=== PATIENT | female | born 2005 ===

== ENCOUNTER 2025-02-06 08:24 | Outpatient (CLI) | payer OTHER | END 2025-02-06 08:25 | disposition home or self-care (01) | LOC: PRENATAL 08:24 | PROVIDERS: ATTEND Obstetrics & Gynecology Maternal & Fetal Medicine | DX: O44.00 Complete placenta previa NOS or without hemorrhage, unspecified trimester (principal); Z3A.22 22 weeks gestation of pregnancy ==

== ENCOUNTER → 2025-04-03 11:22 | Outpatient (CLI) | payer OTHER | END | disposition home or self-care (01) | LOC: PRENATAL 11:22 | PROVIDERS: ATTEND Obstetrics & Gynecology Maternal & Fetal Medicine | DX: O26.849 Uterine size-date discrepancy, unspecified trimester (principal); O36.8199 Decreased fetal movements, unspecified trimester, other fetus; O43.90 Unspecified placental disorder, unspecified trimester; Z3A.31 31 weeks gestation of pregnancy ==